=== PATIENT | female | born 1950 | race Two or more races ===

== ENCOUNTER 2022-04-21 05:33 | Day surgery (SDC) | payer OTHER ==
[~2022-04-21] VITALS: Ht 152.4 cm; Wt 59.0 kg
[~2022-04-21 05:33] MED LIST: LEVOTHYROXINE25 MCG PO; TOPROL XL50 M1 PO
== END 2022-04-21 12:45 | disposition home or self-care (01) ==
LOC: CIR.AMB 05:33
PROVIDERS: ATTEND Obstetrics & Gynecology
DX: N95.0 Postmenopausal bleeding (principal); D25.0 Submucous leiomyoma of uterus; Z20.822 Contact with and (suspected) exposure to COVID-19; I10 Essential (primary) hypertension; E03.9 Hypothyroidism, unspecified

== ENCOUNTER 2023-05-25 05:56 | Day surgery (SDC) | payer OTHER ==
[2023-05-22 09:47] LABS: PH,URINE 6.5 (5.0-8.0); URINE APPEARANCE Clear; URINE BILIRRUBIN Negative (NEGATIVE); URINE BLOOD Trace; URINE COLOR Yellow; URINE GLUCOSE Negative (NEGATIVE); URINE LEUKOCYTE Negative; URINE NITRATE Negative; URINE PROTEIN Negative (NEGATIVE); URINE UROBILINOGEN 0.2 E.U./dl
[2023-05-22 09:48] LABS: URINE RBC 16.5 uL (0.0-20.8)
[2023-05-22 09:54] LABS: URINE EPITHELIAL CELLS 0.1 uL (0.0-38.8); URINE WBC 0.6 uL (0.0-23.2)
[2023-05-22 09:55] LABS: URINE BACTERIA 1.2 uL (0.0-1933)
[2023-05-22 10:00] LABS: HEMATOCRIT 42.1 % (36.0-45.00); HEMOGLOBIN 14.3 g/dL (12.0-15.00); MEAN CELL VOLUME 89.3 fL (80.00-100.00); MEAN CORPUSCULAR HEMOGLOBIN 30.2 pg (27.00-32.0); MEAN CORPUSCULAR HGB CONC 33.8 g/dl (32.0-36.0); PLATELET COUNT 240 K/uL (150-450); RED BLOOD COUNT 4.72 M/uL (4.00-6.00); RED CELL DISTRIBUTION WIDTH 13.6 % (11.5-14.5)
[2023-05-22 10:24] LABS: INR 1.03; PARTIAL THROMBOPLASTIN TIME 30.2 SECONDS (22.0-34.0)
[2023-05-22 10:27] LABS: PROTHROMBIN TIME 10.8 SECONDS (9.0-11.5)
[2023-05-22 11:09] LABS: ALBUMIN 3.6 gm/dL (3.4-5.0); BILIRUBIN TOTAL 0.51 mg/dL (0.3-1.2); CALCIUM 10.3 mg/dL (8.5-10.1); CREATININE SERUM 0.78 mg/dL (0.55-1.02); GFR 72.6; GLOBULINA 4.1 G/DL (2.4-3.5); POTASSIUM 4.05 mEq/L (3.5-5.1); TOTAL PROTEIN 7.7 gm/dL (6.4-8.2)
[2023-05-25] MEDS ORDERED: POVIDONE-IODINE 118 ML BOTT TOP ONE (08:24)
== END 2023-05-25 13:40 | disposition home or self-care (01) ==
LOC: CIR.AMB 05:56
PROVIDERS: ATTEND Obstetrics & Gynecology
DX: N84.0 Polyp of corpus uteri (principal); N95.0 Postmenopausal bleeding